=== PATIENT | male | born 2000 | race African-American/Black ===

== ENCOUNTER 2021-08-17 11:48 | Emergency (ER) | payer OTHER ==
[~2021-08-17] VITALS: Ht 182.9 cm; Wt 65.9 kg
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
[2021-08-17 13:40] VITALS: BP 128/67
[2021-08-17] MEDS ORDERED: CYCL10TA19 PO (13:40)
== END 2021-08-17 14:17 | disposition home or self-care (01) ==
LOC: ER 11:48
DX: M43.6 Torticollis (principal); M54.6 Pain in thoracic spine; M54.59 Other low back pain; V43.52XA Car driver injured in collision with other type car in traffic accident, initial encounter; Y93.I9 Activity, other involving external motion; Y92.89 Other specified places as the place of occurrence of the external cause; Y99.8 Other external cause status
CPT/HCPCS: 72040; 72080; 72125; 99284